=== PATIENT | female | born 1955 | race Caucasian/White ===

== ENCOUNTER 2024-01-16 10:26 | Inpatient (IN) | payer OTHER, MEDICAID, SELFPAY ==
[2024-01-16] VITALS (12 sets, daily range): BP systolic 109–128; BP diastolic 53–72; PULSE 88–111; RESP 14–22; TEMP 35.8–37.6; O2SAT 90–99; BMI 28.8
--- NOTE | 2024-01-16 10:38 | ED.GENADULT ---
HPI - General Adult General Chief complaint: Shortness of Breath/Dyspnea Stated complaint: SOB Time Seen by Provider: 01/16/24 10:37 History of Present Illness HPI narrative: 68-year-old female presents with shortness of breath. She has history of COPD but could not tell me additional medical history. She is on methadone. She has been trying nebulizers overnight. She uses home O2 at night but not usually during day. She notes several days of progressive shortness of breath with productive cough, no clear hemoptysis, with pleuritic right-sided chest pain. She has had fever subjectively. She is currently on 2 L nasal cannula for low oxygen. No back or abdominal or flank pain. No leg swelling or leg pain. No trauma. No lightheadedness or syncope. She is unable provide additional history at this time. Related Data Allergies Allergy/AdvReac Type Severity Reaction Status Date / Time morphine Allergy Verified 01/16/24 10:38 Review of Systems Review of Systems Narrative: Constitutional: + fever, no chills Eyes: no visual disturbance, no discharge Ears, Nose, Mouth, Throat: no rhinorrhea, no sore throat Cardiovascular: + chest pain, no palpitations Respiratory: + cough, shortness of breath Gastrointestinal: no abdominal pain, no vomiting, no diarrhea Genitourinary: no dysuria, no hematuria Musculoskeletal: no back pain, no neck stiffness Skin: no rash, no wound Neurological: no focal weakness, no focal numbness Patient History Social History household members: significant other Smoking Status: Current every day smoker Exam Narrative Exam Narrative: Const: no acute distress, + toxic appearing; anxious, remains conversant; occasional cough; on 2L NC Eyes: PERRLA, EOMI ENT: mucous membranes moist Neck: supple, non-tender Resp: appears mildly tachypneic, with moderate aeration with mild expiratory wheezes bilaterally Card: regular rate and rhythm, no murmurs Abd: non tender diffusely, no rigidity or rebound or guarding Back: no T or L spine tenderness, no CVA tenderness bilaterally Extrem: no deformities, no swelling bilateral lower extremities, 2+ distal pulses all extremities Neuro: ANOx4, top knitter grossly intact, grossly intact sensation and strength all extremities Skin: no rash, warm and dry Initial Vital Signs Initial Vital Signs: Vital Signs Temperature 99.6 F 01/16/24 10:29 Pulse Rate 111 H 01/16/24 10:29 Respiratory Rate 22 01/16/24 10:29 Blood Pressure 125/60 01/16/24 10:29 Pulse Oximetry 91 01/16/24 10:29 Oxygen Delivery Method Nasal Cannula 01/16/24 10:29 Oxygen Flow Rate 2 01/16/24 10:29 Course Course Course Narrative: This patient presents with history and exam most suggestive of COPD exacerbation, viral syndrome, pneumonia, though I have considered a broad differential including but not limited to pulmonary embolism, myocarditis, ACS, pneumothorax, CHF exacerbation, symptomatic anemia, metabolic acidosis with respiratory alkalosis, among others. I think it is reasonable to obtain initial infectious workup with blood cultures, labs, chest x-ray, along with EKG, troponin, while giving DuoNebs, steroids, antibiotics and closely reassessing. If there is not clear evidence of pneumonia, I will pursue additional workup for pulmonary embolism, however currently this presentation seems most consistent with infection. Patient is stable on 2 L nasal cannula currently. EKG sinus tachycardia without acute ischemia or immediately concerning interval prolongation on my review. Lactate reassuring. INR mildly elevated. CBC with leukocytosis in setting of suspected infection, no anemia or thrombocytopenia. CMP with mild hyponatremia, creatinine and LFTs within normal limits. Troponin reassuring. BNP mildly elevated. Viral swab negative. CXR: Awaiting formal read but very clear right-sided pneumonia present. Patient is stable on oxygen currently. I am calling the hospitalist to discuss admission. I spoke with Dr. Feldman of hospitalist service who kindly accepts patient. Adding UDS per discussion. Patient currently stable. Radiology review of CXR below, which I agree with on my independent review: FINDINGS: Surgical changes and devices: None. Lungs and pleura: Prominent patchy and confluent opacities within the right hemithorax. Mediastinum: Mediastinal contours appear normal. Heart size is normal. Bones and chest wall: No suspicious bony lesions. Overlying soft tissues appear unremarkable. IMPRESSION: Right hemithorax opacities suggestive of pneumonia. Recommend interval follow-up to document resolution. Dictated by: Liana Ribeiro M.D. on 01/16/2024 at 12:02 Orders Ordered: ED Orders 01/16/24 10:38 Consult to [employer]EROSPACE QUALITY ENGINEER - Fractionation Supervisor Stat 01/16/24 10:39 XR chest 1V Stat EKG-12 Lead Stat Measure peak expiratory flow ONCE RT Consult Eval and Treat NOW 01/16/24 10:50 Complete Blood Count AUTO DIFF Stat Comprehensive Metabolic Panel Stat Covid-19 + FLU A/B + RSV - PCR Stat Lactate (Lactic Acid) Stat NT-proBNP (BNP-Adult 18+) Stat Prothrombin Time INR Stat Troponin I Stat 01/16/24 11:26 Blood Culture Stat 01/16/24 11:54 Urine Drug Screen, Rapid Stat Acetaminophen (Acetaminophen 325 Mg Tablet) 650 mg PO Q6H PRN PRN Reason: Fever/Mild Pain (1-3) Albuterol/Ipratropium (Albuterol/Ipratropium 3 Ml Ampul) 3 ml INH Q1H PRN PRN Reason: Shortness Of Breath Enoxaparin Sodium (Enoxaparin 40 Mg/0.4 Ml Syringe) 40 mg SUBCUT DAILY [facility] Last Admin: 01/16/24 13:53 Dose: 40 mg Documented By: JARRETT Ceftriaxone Sodium 1,000 mg/ (Sodium Chloride) 100 mls @ 200 mls/hr IV Q24H MAGED Stop: 01/20/24 09:01 Doxycycline Hyclate 100 mg/ (Sodium Chloride) 100 mls @ 100 mls/hr IV Q12H [facility] Melatonin (Melatonin 3 Mg Tablet) 6 mg PO BEDTIME PRN PRN Reason: Insomnia Naloxone HCl (Naloxone 0.4 Mg/Ml Vial) 0.2 mg IV Q2MIN PRN PRN Reason: Opiate Reversal Nystatin (Nystatin Powder 15gm) 1 applic TOP BID PRN PRN Reason: Rash Ondansetron HCl (Ondansetron 4 Mg/2 Ml Inj) 4 mg IV Q4HR PRN PRN Reason: Nausea And Vomiting Sodium Chloride (Sodium Chloride 0.9% Flush) 10 ml IV PRN PRN PRN Reason: Flush Sodium Chloride (Sodium Chloride 0.9% Flush) 10 ml IV BID [facility] Discontinued Medications Doxycycline Hyclate (Doxycycline Hyclate 100 Mg Tablet) 100 mg PO NOW ONE Stop: 01/16/24 11:06 Last Admin: 01/16/24 11:29 Dose: 100 mg Documented By: JAKOB Ceftriaxone Sodium 1,000 mg/ (Sodium Chloride) 100 mls @ 200 mls/hr IV NOW ONE Stop: 01/16/24 11:06 Last Infusion: 01/16/24 12:18 Dose: Infused Documented By: Admin: 01/16/24 11:29 Dose: 200 mls/hr Documented By: JAKOB Methylprednisolone (Methylprednisolone 125 Mg/2 Ml Vial) 125 mg IV NOW ONE Stop: 01/16/24 11:06 Last Admin: 01/16/24 11:29 Dose: 125 mg Documented By: JAKOB Vital Signs Vital signs: Vital Signs - 8 hr 01/16/24 10:29 01/16/24 10:30 01/16/24 10:30 Temperature 99.6 F Pulse Rate 111 H 111 H Respiratory Rate 22 Blood Pressure 125/60 125/60 Pulse Oximetry 91 91 Oxygen Delivery Method Nasal Cannula Oxygen Flow Rate 2 01/16/24 10:53 01/16/24 10:53 01/16/24 11:00 Temperature Pulse Rate 109 H 107 H Respiratory Rate 16 17 Blood Pressure 128/62 Pulse Oximetry 91 92 Oxygen Delivery Method Oxygen Flow Rate 01/16/24 11:00 01/16/24 11:30 01/16/24 11:30 Temperature Pulse Rate 105 H Respiratory Rate 16 Blood Pressure 116/55 L 117/56 L Pulse Oximetry 90 L Oxygen Delivery Method Oxygen Flow Rate 01/16/24 12:00 01/16/24 12:00 Temperature Pulse Rate 102 H Respiratory Rate 14 Blood Pressure 109/53 L Pulse Oximetry 91 Oxygen Delivery Method Nasal Cannula Oxygen Flow Rate 2 Medical Decision Making Lab Data 01/16/24 10:50 01/16/24 10:50 Labs: Lab Results 01/16/24 Range/Units 10:50 WBC 16.8 H (4.5-11.0) X10^3/uL RBC 4.42 (4.0-5.2) X10^6/uL Hgb 12.4 (12.0-16.0) g/dL Hct 36.7 (36-46) % MCV 83.1 (80-100) fL MCH 28.2 (26-34) PG MCHC 33.9 (30-36) % RDW 14.1 (11.6-14.8) % Plt Count 190 (150-400) X10^3/uL Neut % (Auto) Not Reportable Lymph % (Auto) Not Reportable [place] % (Auto) Not Reportable Eos % (Auto) Not Reportable Baso % (Auto) Not Reportable Lymph # (Auto) Not Reportable [place] # (Auto) Not Reportable Baso # (Auto) Not Reportable Total Counted 100 Seg Neutrophils % 53.0 (38-70) % Band Neutrophils % 35.0 H (3-7) % Lymphocytes % (Manual) 4.0 L (25-45) % Atypical Lymphs % 2.0 H ( - 0) % Monocytes % (Manual) 5.0 (2-11) % Metamyelocytes % 1.0 H (-0) % Neutrophils # (Manual) 77000 H (2015-8418) /uL Toxic Vacuolation Present H RBC Morphology Normal morphology PT 15.7 H (9.4-12.5) SECONDS INR 1.4 H (0.9-1.3) Sodium 133 L (137-145) mmol/L Potassium 3.6 (3.4-5.1) mmol/L Chloride 100 (98-107) mmol/L Carbon Dioxide 28 (22-32) mmol/L BUN 21 H (7-17) mg/dL Creatinine 0.80 (0.52-1.04) mg/dL Estimated GFR > 60 (>60) mL/min BUN/Creatinine Ratio 26.3 H (6-22) Glucose 127 H (80-110) mg/dL Lactate 1.7 (0.7-2.1) mmol/L Calcium 8.5 (8.4-10.2) mg/dL Total Bilirubin 0.9 (0.2-1.3) mg/dL AST 30 (14-36) IU/L ALT 20 (<35) IU/L Alkaline Phosphatase 83 (38-126) U/L Troponin I < 0.012 (0.01-0.034) ng/mL NT-Pro-B Natriuret Pep 510 H (<125) pg/mL Total Protein 7.1 (6.3-8.2) g/dL Albumin 3.5 (3.5-5.0) g/dL Globulin 3.6 (1.7-4.1) g/dL Albumin/Globulin Ratio 1.0 (1.0-2.8) SARS-CoV-2 (PCR) Negative (Negative) Influenza A (RT-PCR) Flu a negative (NEGATIVE) Influenza B (RT-PCR) Flu b negative (NEGATIVE) RSV (PCR) Negative (Negative) Discharge Plan Departure Patient Disposition: Admitted As Inpatient Clinical Impression: Community acquired pneumonia Admit Date/Time: 01/16/24 12:06 Admit Provider: Cole Feldman
--- NOTE | 2024-01-16 10:39 | DI.RAD.S_ITS ---
PROCEDURE: XR CHEST 1V INDICATIONS: Shortness of breath TECHNIQUE: One view of the chest was acquired. COMPARISON: CR, CHEST 1VW (PORTABLE), 04/03/2014, 6:11. FINDINGS: Surgical changes and devices: None. Lungs and pleura: Prominent patchy and confluent opacities within the right hemithorax. Mediastinum: Mediastinal contours appear normal. Heart size is normal. Bones and chest wall: No suspicious bony lesions. Overlying soft tissues appear unremarkable. IMPRESSION: Right hemithorax opacities suggestive of pneumonia. Recommend interval follow-up to document resolution. Dictated by: Liana Ribeiro M.D. on 01/16/2024 at 12:02 Approved by: Liana Ribeiro M.D. on 01/16/2024 at 12:02
[2024-01-16 11:10] LABS: Hematocrit 36.7 % (36-46); Hemoglobin 12.4 g/dL (12.0-16.0); Mean Corpuscular HGB Conc 33.9 % (30-36); Mean Corpuscular Hemoglobin 28.2 PG (26-34); Mean Corpuscular Volume 83.1 fL (80-100); Platelet Count 190 X10^3/uL (150-400); Red Blood Cell Count 4.42 X10^6/uL (4.0-5.2); Red Cell Distribution Width 14.1 % (11.6-14.8); White Blood Cell Count 16.8 X10^3/uL (4.5-11.0)
[2024-01-16 11:15] LABS: INR 1.4 (0.9-1.3); Prothrombin Time 15.7 SECONDS (9.4-12.5)
[2024-01-16 11:16] LABS: Add Manual Diff / Slide Review YES
[2024-01-16 11:19] LABS: Alanine Aminotransferase 20 IU/L (<35); Albumin 3.5 g/dL (3.5-5.0); Alkaline Phosphatase 83 U/L (38-126); Aspartate Aminotransferase 30 IU/L (14-36); BUN Creatinine Ratio 26.3 (6-22); Bilirubin Total 0.9 mg/dL (0.2-1.3); Blood Urea Nitrogen 21 mg/dL (7-17); Calcium 8.5 mg/dL (8.4-10.2); Carbon Dioxide 28 mmol/L (22-32); Chloride 100 mmol/L (98-107); Estimated Glomerular Filt Rate > 60 mL/min (>60); Globulin 3.6 g/dL (1.7-4.1); Glucose 127 mg/dL (80-110); HEMOLYSIS < 15 (0-50); Lactate (Lactic Acid) 1.7 mmol/L (0.7-2.1); Potassium 3.6 mmol/L (3.4-5.1); Sodium 133 mmol/L (137-145); Total Protein 7.1 g/dL (6.3-8.2)
[2024-01-16] MEDS: DOXYCYCLINE HYCLATE 100 MG TABLET PO (11:29)
[2024-01-16] MEDS: methylPREDNISolone 125 MG/2 ML VIAL IV (11:29)
[2024-01-16] MEDS: cefTRIAXone 1,000 MG in SODIUM CHLORIDE 0.9% 100 ML 200 MG IV (11:29)
[2024-01-16 11:30] LABS: NT-proBNP (BNP-Adult 18+) 510 pg/mL (<125); Troponin I < 0.012 ng/mL (0.01-0.034)
[2024-01-16 11:33] LABS: Neutrophils Absolute Manual 14784 /uL (3000-5900); Total Cells Counted 100
[2024-01-16 11:34] LABS: RBC Morphology Normal Morphology; Toxic Vacuolation Present
[2024-01-16 11:45] LABS: Influenza A - CEPHEID Flu A NEGATIVE (NEGATIVE); Influenza B - CEPHEID Flu B NEGATIVE (NEGATIVE); Respiratory Syncytial Virus Negative (Negative)
[2024-01-16 11:46] LABS: COVID-19 CEPHEID 4-PLEX PCR Negative (Negative)
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
[2024-01-16] MEDS: ENOXAPARIN 40 MG/0.4 ML SYRINGE SUBCUT (13:53)
--- NOTE | 2024-01-16 15:59 | PM.HP.1 ---
History of Present Illness History of Present Illness Date Patient Seen: 01/16/24 Chief complaint: SOB Narrative: Angela Santos is a 68yo F with PMH of opioid abuse now on methadone, daily tobacco use, depression, hypothyroidism and GERD who presents with R-sided pleuritic CP and dyspnea. Patient states for about the past week she has noticed R-sided pain with deep breaths. This progressed to the point where she was becoming SOB with a productive cough so was sent to the ED by [facility] where she goes to get her daily methadone. She is weaning herself off fentanyl pills and says the methadone has helped alot, and she is down to 1-2 pills per day from 9-10. She also smokes cigarettes daily. In the ED found to be hypoxic in the 80's so put on 3L NC. She normally does not use O2. She denies substernal CP, NV, abd pain, diarrhea or LE swelling. PFSH Social History household members: significant other Smoking Status: Current every day smoker Meds Home Medications and Allergies Home Medications Medication Instructions Recorded Confirmed Type bupropion HCl 150 mg 24 hr tablet, 150 mg PO QAM 01/16/24 01/16/24 History extended release levothyroxine 112 mcg tablet 112 mcg PO DAILY 01/16/24 01/16/24 History omeprazole 40 mg capsule,delayed 40 mg PO DAILY 01/16/24 01/16/24 History release Allergies Allergy/AdvReac Type Severity Reaction Status Date / Time morphine Allergy Verified 01/16/24 10:38 Review of Systems Review of Systems Narrative: All other systems reviewed with the patient and are negative unless otherwise stated. Exam Vital Signs (past 8 hours): - 01/16/24 10:29 01/16/24 10:30 01/16/24 10:30 Temperature 99.6 F Pulse Rate 111 H 111 H Respiratory Rate 22 Blood Pressure 125/60 125/60 Pulse Oximetry 91 91 Oxygen Delivery Method Nasal Cannula Oxygen Flow Rate 2 01/16/24 10:53 01/16/24 10:53 01/16/24 11:00 Temperature Pulse Rate 109 H 107 H Respiratory Rate 16 17 Blood Pressure 128/62 Pulse Oximetry 91 92 Oxygen Delivery Method Oxygen Flow Rate 01/16/24 11:00 01/16/24 11:30 01/16/24 11:30 Temperature Pulse Rate 105 H Respiratory Rate 16 Blood Pressure 116/55 L 117/56 L Pulse Oximetry 90 L Oxygen Delivery Method Oxygen Flow Rate 01/16/24 12:00 01/16/24 12:00 01/16/24 12:30 Temperature 98.2 F Pulse Rate 102 H 98 H Respiratory Rate 14 20 Blood Pressure 109/53 L 123/72 Pulse Oximetry 91 90 L Oxygen Delivery Method Nasal Cannula Oxygen Flow Rate 2 3 01/16/24 12:30 01/16/24 12:30 01/16/24 12:48 Temperature 98.2 F Pulse Rate 98 H Respiratory Rate 20 20 Blood Pressure 123/72 123/72 Pulse Oximetry 90 L Oxygen Delivery Method Oxygen Flow Rate 3 01/16/24 15:51 Temperature 96.5 F L Pulse Rate 90 Respiratory Rate 20 Blood Pressure 119/62 Pulse Oximetry 99 Oxygen Delivery Method Oxygen Flow Rate 3 Oxygen Delivery Method Nasal Cannula Oxygen Flow Rate 3 Narrative Exam Narrative: GEN: no acute distress, appears older than stated age HEENT: moist mucous membranes, PERRL NECK: trachea midline, no JVD CV: regular rate and rhythm, no murmurs PULM: clear bilaterally ABD: soft, nontender, nondistended, no organomegaly EXT: warm and well perfused with no edema NEURO: awake, alert, oriented, no focal deficits Objective Labs 01/16/24 10:50 01/16/24 10:50 Labs: Laboratory Results - last 24 hr 01/16/24 10:50 WBC 16.8 H RBC 4.42 Hgb 12.4 Hct 36.7 MCV 83.1 MCH 28.2 MCHC 33.9 RDW 14.1 Plt Count 190 Neut % (Auto) Not Reportable Lymph % (Auto) Not Reportable [place] % (Auto) Not Reportable Eos % (Auto) Not Reportable Baso % (Auto) Not Reportable Lymph # (Auto) Not Reportable [place] # (Auto) Not Reportable Baso # (Auto) Not Reportable Total Counted 100 Seg Neutrophils % 53.0 Band Neutrophils % 35.0 H Lymphocytes % (Manual) 4.0 L Atypical Lymphs % 2.0 H Monocytes % (Manual) 5.0 Metamyelocytes % 1.0 H Neutrophils # (Manual) 74371 H Toxic Vacuolation Present H RBC Morphology Normal morphology PT 15.7 H INR 1.4 H Sodium 133 L Potassium 3.6 Chloride 100 Carbon Dioxide 28 BUN 21 H Creatinine 0.80 Estimated GFR > 60 BUN/Creatinine Ratio 26.3 H Glucose 127 H Lactate 1.7 Calcium 8.5 Total Bilirubin 0.9 AST 30 ALT 20 Alkaline Phosphatase 83 Troponin I < 0.012 NT-Pro-B Natriuret Pep 510 H Total Protein 7.1 Albumin 3.5 Globulin 3.6 Albumin/Globulin Ratio 1.0 SARS-CoV-2 (PCR) Negative Influenza A (RT-PCR) Flu a negative Influenza B (RT-PCR) Flu b negative RSV (PCR) Negative Assessment & Plan Assessment & Plan narrative: # acute hypoxic resp failure 2/2 CAP -R sided infiltrate on CXR, WBC 16, SOB with productive cough -rocephin and doxy -may have been from smoking fentanyl pills as patient admits to smoking 1-2 per day -currently on 3L NC, wean as able -sputum culture if able # opioid abuse while on methadone -patient weaning herself down from daily fentanyl pill smoking, was 10/day now 1-2 -continue methadone 75mg daily, will confirm dosage with [facility] # hypothyroidism -continue synthroid # depression -continue wellbutrin # GERD -continue PPI Code status is full code. DVT prophylaxis with Lovenox. Proxy is daughter Renee. I have reviewed home meds and used all available resources to reconcile the home meds. Case discussed with ED physician/APC and patient will be admitted to the hospitalist service for further workup and management. This patient will be admitted as inpatient and will require greater than 2 midnights of hospital time to treat pneumonia. Quality VTE Deep Vein Thrombosis/Pulmonary Embolism Present on Admission: No
[2024-01-16] MEDS: ALBUTEROL/IPRATROPIUM 3 ML AMPUL INH ×2 (18:03→20:16)
[2024-01-16] MEDS: NYSTATIN POWDER 15GM 1 APPLIC TOP (18:27)
[2024-01-16] MEDS: CALCIUM CARBONATE 500 MG TAB 1000 MG PO (18:27)
[2024-01-16 18:39] LABS: Appearance Urine UA CLEAR; Bilirubin Urine UA NEGATIVE (NEGATIVE); Color Urine UA YELLOW; Glucose Urine UA NEGATIVE (Negative); Ketones Urine UA NEGATIVE (NEGATIVE); Leukocyte Esterase Urine UA NEGATIVE (NEGATIVE); Nitrite Urine UA NEGATIVE (Negative); Occult Blood Urine UA NEGATIVE (Negative); Protein Urine UA TRACE (Negative); Specific Gravity Urine UA >=1.030 (1.000-1.035)
[2024-01-16 18:44] LABS: Ur Creatinine Normal (Normal); Ur Specific Gravity Normal (Normal); Urine Tetrahydrocannabinol Negative (Negative); Urine pH Normal (Normal)
[2024-01-16 18:45] LABS: UR Morphine/Opiate cutoff 300 Positive (Negative); Urine Amphetamines Positive (Negative); Urine Barbiturates Negative (Negative); Urine Benzodiazepines Negative (Negative); Urine MDMA Negative (Negative); Urine Methadone Positive (Negative); Urine Methamphetamines Positive (Negative); Urine Oxycodone Positive (Negative); Urine Phencyclidine Negative (Negative); Urine Tricyclic Antidepressant Negative (Negative)
[2024-01-16 18:46] LABS: Urine Cocaine Positive (Negative)
[2024-01-16 18:50] LABS: Bacteria Urine Moderate (10-30); RBC Urine None Seen (0-5/HPF); Squamous Epithelial Cell Urine 10-30 /HPF (0-5/HPF); Urine Volume 10mL (spun)
[2024-01-16 18:51] LABS: Amorphous Sediment Urine 1+; Culture Indicated Urine Specimen Cultured; Hyaline Casts Urine 1-5/LPF; Mucus Urine 1+ (Negative); Transitional Epi Cells Urine 1-5/HPF (0-5/HPF); WBC Urine 5-10/HPF (0-5/HPF)
[2024-01-16] MEDS: BUDESONIDE 0.5 MG/2 ML NEB INH (20:17)
[2024-01-16] MEDS: SODIUM CHLORIDE 0.9% FLUSH 10 ML IV (21:00)
[2024-01-16] MEDS: LORazepam 0.5 MG TABLET PO (22:59)
[2024-01-16] MEDS: DOXYCYCLINE 100 MG in SODIUM CHLORIDE 0.9% 100 ML IV (23:11)
--- NOTE | 2024-01-16 23:30 | PC.NURSE ---
maintenance supervisor 2nd shift: Patient is AxOx4, vital signs are stable, 97% on 3L NC. Patient states that her breathing has improved, mild SOB noted on exertion, received breathing treatment before bed. Coughing up phlegm, sputum sample sent to lab. Deep breathing exercises performed. Denies pain, however patient states that she is starting to go through withdrawals and is feeling anxious/tearful. Patient states that she takes methadone & fentanyl daily. Stated that she is considering going home. Emotional support and education provided on treatment interventions. Notified MD Gill, 0.5 PO Ativan ordered & given. Patient states she is feeling better and more relaxed now. Plan of care ongoing.
[2024-01-17] VITALS (7 sets, daily range): BP systolic 97–113; BP diastolic 61–68; PULSE 84–87; RESP 16–20; TEMP 36–36.6; O2SAT 86–99
[2024-01-17 05:47] LABS: BUN Creatinine Ratio 35.9 (6-22); Blood Urea Nitrogen 23 mg/dL (7-17); Carbon Dioxide 33 mmol/L (22-32); Chloride 102 mmol/L (98-107); Estimated Glomerular Filt Rate > 60 mL/min (>60); Glucose 172 mg/dL (80-110); HEMOLYSIS < 15 (0-50); Sodium 135 mmol/L (137-145)
[2024-01-17 05:51] LABS: Add Manual Diff / Slide Review NO; Basophils Absolute Auto 0 /uL (0-100); Basophils Percent Auto 0.2 % (0-2); Eosinophils Absolute Auto 0 /uL (0-450); Hemoglobin 11.5 g/dL (12.0-16.0); Lymphocytes Absolute Auto 500 /uL (1100-4500); Lymphocytes Percent Auto 4.1 % (25-40); Mean Corpuscular HGB Conc 33.7 % (30-36); Mean Corpuscular Hemoglobin 28.2 PG (26-34); Mean Corpuscular Volume 83.8 fL (80-100); Monocytes Absolute Auto 600 /uL (0-900); Monocytes Percent Auto 4.3 % (3-14); Neutrophils Absolute Auto 11900 /uL (1500-7000); Neutrophils Percent Auto 91.4 % (50-75); Platelet Count 182 X10^3/uL (150-400); Red Blood Cell Count 4.06 X10^6/uL (4.0-5.2); Red Cell Distribution Width 13.9 % (11.6-14.8)
[2024-01-17] MEDS: PANTOPRAZOLE DR 40 MG TABLET PO (05:59)
[2024-01-17] MEDS: LEVOTHYROXINE 112 MCG TABLET PO (05:59)
[2024-01-17 07:51] LABS: MRSA (Nasal) PCR DETECTED (Not Detect)
[2024-01-17] MEDS: BUDESONIDE 0.5 MG/2 ML NEB INH (08:42)
[2024-01-17] MEDS: ALBUTEROL/IPRATROPIUM 3 ML AMPUL INH ×2 (08:42→11:20)
[2024-01-17] MEDS: METHADONE 10 MG TABLET 75 MG PO (09:06)
[2024-01-17] MEDS: SODIUM CHLORIDE 0.9% FLUSH 10 ML IV (09:07)
[2024-01-17] MEDS: cefTRIAXone 1,000 MG in SODIUM CHLORIDE 0.9% 100 ML 200 MG IV (09:07)
[2024-01-17] MEDS: ENOXAPARIN 40 MG/0.4 ML SYRINGE SUBCUT (09:07)
[2024-01-17] MEDS: buPROPion XL 150 MG TAB PO (09:07)
[2024-01-17] MEDS: NICOTINE 21 MG PATCH TOP (09:07)
[2024-01-17] MEDS: VANCOMYCIN 1,250 MG/250 ML PIGGYBACK 250 MG IV ×2 (09:08→09:52)
--- NOTE | 2024-01-17 10:54 | PC.NURSE ---
Assess- Patient is pleasant this morning, she has iv vanco infusing and tolerated her other iv antibiotic this morning. Patient given her 75mg of po methadone. She is visiting with her s.o. at bedside. Nicotine patch applied to l.shoulder. She states that she lives [place] in [place] in an apartment and that she does use fentanyl (blues) pills. Patient is comfortable and sitting at the side of her bed.
--- NOTE | 2024-01-17 11:16 | CM.DPC ---
DCP Cont. Reviewed EMR and team rounds for status updates. Pt is much improved today. Plan is to have RT complete a home O2 eval, then she will d/c home. Her significant other will plan to transport her. This LAPPER provided pt with OP [facility] tx facilities, discussed a plan for her to decide along with her PCP which once would best meet her needs. No further DCP needs identified at this time.
[2024-01-17] MEDS: VANCOMYCIN PER PHARMACY 1 REQUEST MISC (11:27)
[2024-01-17] MEDS: DOXYCYCLINE 100 MG in SODIUM CHLORIDE 0.9% 100 ML IV (11:27)
--- NOTE | 2024-01-17 15:40 | P.DS_ITS ---
History of Present Illness History of Present Illness Chief complaint: SOB Narrative: Angela Santos is a 68yo F with PMH of opioid abuse now on methadone, daily tobacco use, depression, hypothyroidism and GERD who presents with R-sided pleuritic CP and dyspnea. Patient states for about the past week she has noticed R-sided pain with deep breaths. This progressed to the point where she was becoming SOB with a productive cough so was sent to the ED by [facility] where she goes to get her daily methadone. She is weaning herself off fentanyl pills and says the methadone has helped alot, and she is down to 1-2 pills per day from 9-10. She also smokes cigarettes daily. In the ED found to be hypoxic in the 's so put on 3L NC. She normally does not use O2. She denies substernal CP, NV, abd pain, diarrhea or LE swelling. Discharge Providers Provider Date of admission: 01/16/24 12:06 Discharge Date: 01/17/24 Primary care physician: Zoie Clemons DO Consults: 01/16/24 10:38 Consult to [facility] [place] - Waiter Waitress Stat Comment: drug use, wants to talk about detox 01/16/24 14:48 Consult to [facility] [place] - Waiter Waitress Routine Comment: Consult to Pastoral Services Routine Comment: patient request Discharge provider: Cole Feldman DO Summary Hospital Course Discharge Diagnosis: # acute on chronic hypoxic resp failure 2/2 CAP -R sided infiltrate on CXR, WBC 16, SOB with productive cough -rocephin and doxy -may have been from smoking fentanyl pills as patient admits to smoking 1-2 per day -currently on 3L NC, normally uses 2L at night at home -RT qualified patient for home O2 and sent home with O2 supplies -discharged on 5 more days of po augmentin and doxy # polysubstance abuse while on methadone -patient weaning herself down from daily fentanyl pill smoking, was 10/day now 1-2 -continue methadone 75mg daily, [facility] -Utox positive for oxy, methadone, cocaine and methamphetamine # hypothyroidism -continue synthroid # depression -continue wellbutrin # GERD -continue PPI Hospital Course: Admitted for PNA and hypoxia. Placed on IV abx and supp O2. She normally uses 2L NC at home at night, but has been trying to get home O2 during the day as well. She improved and was discharged with home O2 supplies and po abx for 5 more days. Exam Vital Signs (past 8 hours): - 01/17/24 08:00 01/17/24 08:42 01/17/24 11:23 Temperature 97.5 F L Pulse Rate 87 86 85 Respiratory Rate 18 16 16 Blood Pressure 97/61 Pulse Oximetry 93 99 92 Oxygen Delivery Method Nasal Cannula Nasal Cannula Oxygen Flow Rate 2 2 2 01/17/24 11:45 01/17/24 12:00 Temperature 97.8 F Pulse Rate 84 Respiratory Rate 18 Blood Pressure 110/67 Pulse Oximetry 86 L 91 Oxygen Delivery Method Oxygen Flow Rate 0 1 Oxygen Delivery Method Nasal Cannula Oxygen Flow Rate 1 Narrative Exam Narrative: GEN: no acute distress, appears older than stated age HEENT: moist mucous membranes, PERRL NECK: trachea midline, no JVD CV: regular rate and rhythm, no murmurs PULM: clear bilaterally ABD: soft, nontender, nondistended, no organomegaly EXT: warm and well perfused with no edema NEURO: awake, alert, oriented, no focal deficits Objective Labs 01/17/24 05:20 01/17/24 05:20 Labs: Laboratory Results - last 24 hr 01/16/24 01/16/24 01/17/24 18:10 18:10 05:20 WBC 13.0 H RBC 4.06 Hgb 11.5 L Hct 34.0 L MCV 83.8 MCH 28.2 MCHC 33.7 RDW 13.9 Plt Count 182 Neut % (Auto) 91.4 H Lymph % (Auto) 4.1 L [place] % (Auto) 4.3 Eos % (Auto) 0.0 L Baso % (Auto) 0.2 Neut # (Auto) 79429 H Lymph # (Auto) 500 L [place] # (Auto) 600 Eos # (Auto) 0 Baso # (Auto) 0 Sodium 135 L Potassium 4.0 Chloride 102 Carbon Dioxide 33 H BUN 23 H Creatinine 0.64 Estimated GFR > 60 BUN/Creatinine Ratio 35.9 H Glucose 172 H Calcium 9.0 Urine Color Yellow Urine Appearance Clear Urine pH 6.0 Normal Ur Specific [place] >=1.030 H Urine Protein Trace H Urine Glucose (UA) Negative Urine Ketones Negative Urine Occult Blood Negative Urine Nitrate Negative Urine Bilirubin Negative Urine Urobilinogen 1.0 Ur Leukocyte Esterase Negative Urine RBC None seen Urine WBC 5-10/hpf H Ur Squamous Epith Cells 10-30 /hpf H Ur Transition Epith Cell 1-5/hpf Amorphous Sediment 1+ Urine Bacteria Moderate (10-30) H Hyaline Casts 1-5/lpf Urine Mucus 1+ H Ur Culture Indicated? Specimen cultured Vol Urine Centrifuged 10ml (spun) Nasal Screen MRSA (PCR) U Opiates 300ng/mL cut Positive H Ur Oxycodone Screen Positive H Urine Methadone Screen Positive H Ur Barbiturates Screen Negative U Tricyclic Antidepress Negative Ur Phencyclidine Scrn Negative Ur Amphetamines Screen Positive H U Methamphetamines Scrn Positive H Ur MDMA Scrn (Ecstasy) Negative U Benzodiazepines Scrn Negative Urine Cocaine Screen Positive H U Marijuana (THC) Screen Negative Urine Specific [place] Normal Ur Creatinine Normal 01/17/24 06:15 WBC RBC Hgb Hct MCV MCH MCHC RDW Plt Count Neut % (Auto) Lymph % (Auto) [place] % (Auto) Eos % (Auto) Baso % (Auto) Neut # (Auto) Lymph # (Auto) [place] # (Auto) Eos # (Auto) Baso # (Auto) Sodium Potassium Chloride Carbon Dioxide BUN Creatinine Estimated GFR BUN/Creatinine Ratio Glucose Calcium Urine Color Urine Appearance Urine pH Ur Specific [place] Urine Protein Urine Glucose (UA) Urine Ketones Urine Occult Blood Urine Nitrate Urine Bilirubin Urine Urobilinogen Ur Leukocyte Esterase Urine RBC Urine WBC Ur Squamous Epith Cells Ur Transition Epith Cell Amorphous Sediment Urine Bacteria Hyaline Casts Urine Mucus Ur Culture Indicated? Vol Urine Centrifuged Nasal Screen MRSA (PCR) Detected H U Opiates 300ng/mL cut Ur Oxycodone Screen Urine Methadone Screen Ur Barbiturates Screen U Tricyclic Antidepress Ur Phencyclidine Scrn Ur Amphetamines Screen U Methamphetamines Scrn Ur MDMA Scrn (Ecstasy) U Benzodiazepines Scrn Urine Cocaine Screen U Marijuana (THC) Screen Urine Specific [place] Ur Creatinine PFSH Social History household members: significant other Smoking Status: Current every day smoker Discharge Plan Discharge Plan Patient Disposition: Home Provider Discharge Comment: I've put you on 2 antibiotics to finish treating your pneumonia. Discharge orders & Medications Prescriptions: New amoxicillin-pot clavulanate 875-125 mg tablet 1 tab PO BID 5 Days Qty: 10 0RF doxycycline hyclate 100 mg tablet 100 mg PO BID 5 Days Qty: 10 0RF nystatin 100,000 unit/gram powder 1 applic topical DAILY PRN (Reason: rash) Qty: 30 0RF Continued bupropion HCl 150 mg tablet extended release 24 hr 150 mg PO QAM levothyroxine 112 mcg tablet 112 mcg PO DAILY omeprazole 40 mg capsule,delayed release(DR/EC) 40 mg PO DAILY albuterol sulfate 90 mcg/actuation HFA aerosol inhaler 2 puff inhalation TID-QID PRN (Reason: SOB) fluticasone propion-salmeterol 230-21 mcg/actuation HFA aerosol inhaler 2 puff inhalation BID Spiriva Respimat 2.5 mcg/actuation mist 1 puff inhalation DAILY Follow up/Referrals: Zoie Clemons DO [Primary Care Provider] - 2 Weeks Visit Report/Discharge Packet Stand Alone Forms: Patient Portal/API, Stroke Signs & Symptoms Discharge Data Primary Care Provider: Zoie Clemons Quality VTE Deep Vein Thrombosis/Pulmonary Embolism Present on Admission: No
== END 2024-01-17 16:10 | disposition home or self-care (01) | DRG 193 ==
LOC: ED 12:02 → AC 12:07
PROVIDERS: Admitting Provider Student in an Organized Health Care Education/Training Program; Emergency Provider Emergency Medicine; PCP Student in an Organized Health Care Education/Training Program; Referring Provider Emergency Medicine; Visit Provider Student in an Organized Health Care Education/Training Program
DX: J18.9 Pneumonia, unspecified organism (principal); J96.01 Acute respiratory failure with hypoxia; E03.9 Hypothyroidism, unspecified; F32.A Depression, unspecified; K21.9 Gastro-esophageal reflux disease without esophagitis; F19.10 Other psychoactive substance abuse, uncomplicated; Z72.0 Tobacco use
CPT/HCPCS: 0241U; 36415; 71045; 80048; 80053; 80305; 81001; 83605; 83880; 84484; 85007; 85025; 85610; 87040; 87070; 87086; 87205; 87797; 93005; 93010; 94640; 96365; 96375; 99284; 99285; J0696; J1650; J2919

== ENCOUNTER 2024-01-20 10:25 | Inpatient (IN) | payer OTHER, MEDICAID, SELFPAY ==
[2024-01-16 14:28] VITALS: BMI 28.8
[2024-01-20] VITALS (17 sets, daily range): BP systolic 117–154; BP diastolic 57–82; PULSE 82–94; RESP 18–22; TEMP 36.7–37.2; O2SAT 87–95; BMI 26.6
--- NOTE | 2024-01-20 10:41 | ED_ITS ---
HPI - SOB/Dyspnea General Chief Complaint: Shortness of Breath/Dyspnea Stated Complaint: r. rib pain w/ coughing Time Seen by Provider: 01/20/24 10:35 History of Present Illness HPI Narrative: this is a 68-year-old female seen here on the 15 of January diagnosed with pneumonia and discharged on Augmentin. She was at her methadone clinic today had shortness of breath and right-sided chest pain EMS was called. Had an 88% room air saturation. She was transported. History is obtained from EMS old records in the patient. She is complaining of right-sided chest pain. It hurts when she breathes. He is in his sharp. She also feels short of breath. She has not had fevers, she has had some nausea. Patient states that she is a smoker. He is on methadone 75 mg a day. This dose was confirmed with the [facility] Related Data Home Medications Medication Instructions Recorded Confirmed albuterol sulfate 90 mcg/actuation 2 puff inhalation TID-QID PRN SOB 01/16/24 01/16/24 aerosol inhaler bupropion HCl 150 mg 24 hr tablet, 150 mg PO QAM 01/16/24 01/16/24 extended release fluticasone propionate 230 2 puff inhalation BID 01/16/24 01/16/24 mcg-salmeterol 21 mcg/actuation HFA inhaler levothyroxine 112 mcg tablet 112 mcg PO DAILY 01/16/24 01/16/24 omeprazole 40 mg capsule,delayed 40 mg PO DAILY 01/16/24 01/16/24 release tiotropium bromide 2.5 1 puff inhalation DAILY 01/16/24 01/16/24 mcg/actuation mist for inhalation (Spiriva Respimat) Previous Rx's Medication Instructions Recorded amoxicillin 875 mg-potassium 1 tab PO BID 5 days #10 tabs 01/17/24 clavulanate 125 mg tablet doxycycline hyclate 100 mg tablet 100 mg PO BID 5 days #10 tabs 01/17/24 nystatin 100,000 unit/gram topical 1 applic topical DAILY PRN rash 01/17/24 powder #30 grams Allergies Allergy/AdvReac Type Severity Reaction Status Date / Time morphine Allergy Verified 01/16/24 10:38 Patient History Social History household members: significant other Smoking Status: Current every day smoker Smoking Status: Current every day smoker tobacco type: cigarettes alcohol intake frequency: other Substance Use Type: opiates and prescription drug Exam Initial Vital Signs Initial Vital Signs: Vital Signs Temperature 98.9 F 01/20/24 10:37 Pulse Rate 94 H 01/20/24 10:37 Respiratory Rate 22 01/20/24 10:37 Blood Pressure 143/67 H 01/20/24 10:37 Pulse Oximetry 91 01/20/24 10:37 Oxygen Delivery Method Room Air 01/20/24 10:37 Const General: acute distress HENMT Head: normocephalic and atraumatic Chest Other: tenderness to palpation along the right chest wall. There is no rash. There is no crepi Resp Effort & Inspection: labored and pursed lip breathing Auscultation: rhonchi and wheezes Cardio Other: regular rhythm rate no murmur rub or gallop Skin Other: warm and dry Neuro Other: alert oriented moving all 4 extremities Course Orders Ordered: ED Orders 01/20/24 10:35 EKG-12 Lead Stat 01/20/24 10:54 XR chest 2V Stat 01/20/24 11:40 BNP [NT-proBNP (BNP-Adult 18+)] Stat CBC Auto Diff [Complete Blood Count AUTO DIFF] Stat CMP [Comprehensive Metabolic Panel] Stat D Dimer Stat Troponin I Stat 01/20/24 13:55 CT angio chest PE protocol Stat 01/20/24 15:46 Respiratory Panel (Film Array) Stat 01/20/24 15:49 Blood Culture Stat Procalcitonin Stat Discontinued Medications Methadone HCl (Methadone 10 Mg Tablet) 75 mg PO NOW ONE Stop: 01/20/24 13:01 Last Admin: 01/20/24 13:05 Dose: 75 mg Documented By: KW Consultations Consultation #1: discussed with Dr. Coy, hospitalist who accepts admission Vital Signs Vital signs: Vital Signs - 8 hr 01/20/24 10:37 01/20/24 12:01 01/20/24 12:02 Temperature 98.9 F Pulse Rate 94 H 90 Respiratory Rate 22 Blood Pressure 143/67 H 117/57 L Pulse Oximetry 91 94 Oxygen Delivery Method Room Air 01/20/24 12:02 01/20/24 12:30 01/20/24 12:30 Temperature Pulse Rate 90 86 Respiratory Rate Blood Pressure 133/63 Pulse Oximetry 93 95 Oxygen Delivery Method MDM - SOB/Dyspnea Lab Data Lab results narrative: leukocytosis which is mild at 13.1. Chemistries remarkable for potassium of 3.3. D-dimer is elevated troponin is normal, proBNP is normal 01/20/24 11:40 01/20/24 11:40 Labs: Lab Results 01/20/24 Range/Units 11:40 WBC 13.1 H (4.5-11.0) X10^3/uL RBC 4.32 (4.0-5.2) X10^6/uL Hgb 12.1 (12.0-16.0) g/dL Hct 36.0 (36-46) % MCV 83.4 (80-100) fL MCH 28.0 (26-34) PG MCHC 33.6 (30-36) % RDW 14.3 (11.6-14.8) % Plt Count 276 (150-400) X10^3/uL Neut % (Auto) Not Reportable Lymph % (Auto) Not Reportable [place] % (Auto) Not Reportable Eos % (Auto) Not Reportable Baso % (Auto) Not Reportable Lymph # (Auto) Not Reportable [place] # (Auto) Not Reportable Baso # (Auto) Not Reportable Total Counted 100 Seg Neutrophils % 66.0 (38-70) % Band Neutrophils % 10.0 H (3-7) % Lymphocytes % (Manual) 6.0 L (25-45) % Monocytes % (Manual) 16.0 H (2-11) % Eosinophils % (Manual) 2.0 (2-4) % Neutrophils # (Manual) 9956 H (2715-4594) /uL RBC Morphology Normal morphology D-Dimer 2487 H (<500) ng/ml Sodium 139 (137-145) mmol/L Potassium 3.3 L (3.4-5.1) mmol/L Chloride 101 (98-107) mmol/L Carbon Dioxide 33 H (22-32) mmol/L BUN 9 (7-17) mg/dL Creatinine 0.52 (0.52-1.04) mg/dL Estimated GFR > 60 (>60) mL/min BUN/Creatinine Ratio 17.3 (6-22) Glucose 133 H (80-110) mg/dL Calcium 8.8 (8.4-10.2) mg/dL Total Bilirubin 0.6 (0.2-1.3) mg/dL AST 23 (14-36) IU/L ALT 26 (<35) IU/L Alkaline Phosphatase 96 (38-126) U/L Troponin I < 0.012 (0.01-0.034) ng/mL NT-Pro-B Natriuret Pep 187 H (<125) pg/mL Total Protein 7.3 (6.3-8.2) g/dL Albumin 3.5 (3.5-5.0) g/dL Globulin 3.8 (1.7-4.1) g/dL Albumin/Globulin Ratio 0.9 L (1.0-2.8) Imaging Data CT scan - chest: Radiologist's Impression: [address] [address] [address] Scan Report Signed Patient: Angela Santos MR#: [id number] : 1955 Acct:[id number] Age/Sex: 68 / F Date of Service: 01/20/24 Loc: ED Accession Number: [id number] Procedure: CT angio chest PE protocol Ordering Provider: Bret Murillo MD PROCEDURE: CT ANGIO CHEST PE PROTOCOL INDICATIONS: PE suspected positive dimer TECHNIQUE: After the administration of intravenous contrast, 2 mm thick sections acquired from the pulmonary apices to the posterior costophrenic angles. 3-dimensional maximum intensity projection (MIP) coronal and sagittal reformats were then acquired through the thorax. For radiation dose reduction, the following was used: automated exposure control, adjustment of mA and/or kV according to patient size. COMPARISON: None. FINDINGS: Image quality: Diagnostic. Pulmonary arteries: Pulmonary arteries are normal in size, and demonstrate no intraluminal filling defects to suggest central pulmonary embolism. Lower Neck: No enlarged lymph nodes. Thyroid: No thyroid nodules which require sonographic follow up, per consensus guidelines. Axillae: No enlarged lymph nodes. Chest Wall: Unremarkable. Bones: Unremarkable. Lungs and Pleura: There is a [id number] somewhat lobulated right pleural effusion with a small amount of loculations. There is associated mild compressive atelectasis in the basilar portion of the right lung. There is a interstitial process involving the right upper lobe with extensive interstitial change and septal and paraseptal thickening. Heart: Heart size is normal. No pericardial effusion. Thoracic Vessels: No aortic aneurysm. Mediastinum and Kate: Mediastinal lymph nodes are suspicious by number borderline in size. Findings include a right paramidline precarinal lymph node on image 48/4 measuring 1.3 x 1.7 cm, a subcarinal lymph node on image 60/4 measuring 1.3 x 2.4 cm prominent right hilar adenopathy, and a AP window lymph node image 42/4 measuring 1.0 x 1 4 cm. Esophagus: No wall thickening. Small hiatal hernia. Upper Abdomen: Visualized upper abdomen solid organs and bowel loops appear normal. IMPRESSION: 1. No acute pulmonary emboli. 2. Constellation of findings is suspicious for a potential malignant process. 3. There is mediastinal and right hilar adenopathy which is nonspecific but potentially represents malignant involvement. This is not definite. There is also a interstitial process in the right lung, predominantly in the right upper lobe. This may potentially represent post radiation change. If the the patient has not had previous radiation, viral pneumonia. Additionally, interstitial spread of tumor can have a similar appearance. Suggest clinical correlation. Dictated by: Jorge Burkett M.D. on 01/20/2024 at 14:45 Approved by: Jorge Burkett M.D. on 01/20/2024 at 15:02 ECG Data Interpretation: ECG shows normal sinus rhythm at [address] segment changes poor R-wave progression MDM Narrative Medical decision making narrative: 68-year-old female recently diagnosed with pneumonia presenting with increasing dyspnea, pleuritic right-sided chest pain and new oxygen requirement. Differential diagnosis includes pneumonia with sepsis, pneumonia viral versus bacterial, pulmonary embolism, heart failure and ischemic heart disease. Imaging shows evidence of pneumonia versus malignancy and there was a right pleural effusion. If this is pneumonia it is likely atypical versus bacterial. Pulmonary embolism was not seen on imaging. ProBNP is normal, troponin is normal I do not think this is ischemic. I will order blood cultures and a full respiratory panel patient should be admitted to the hospitalist service. started ceftriaxone and doxycycline for empiric antibiotic coverage. Discharge Plan Departure Patient Disposition: Admitted As Inpatient Clinical Impression: Pneumonia, primary atypical Respiratory failure Qualifiers: Chronicity: acute Respiratory failure complication: hypoxia Qualified Code(s): J96.01 - Acute respiratory failure with hypoxia Admit Date/Time: 01/20/24 16:28 Admit Provider: Sampson York
--- NOTE | 2024-01-20 10:54 | DI.RAD.S_ITS ---
PROCEDURE: XR CHEST 2V INDICATIONS: sob TECHNIQUE: 2 views of the chest were acquired. COMPARISON: [facility], CR, XR CHEST 1V, 01/16/2024, 11:15. FINDINGS: Surgical changes and devices: None. Lungs and pleura: There is appearance of increased pulmonary vascularity. Minimal right effusion. Mild appearance of increased patchy opacities within the right hemithorax improved. Mediastinum: Mediastinal contours are normal. Heart size is normal. Bones and chest wall: No suspicious bony abnormalities. Soft tissues appear unremarkable. IMPRESSION: Improved appearance right hemithorax opacities. Dictated by: Liana Ribeiro M.D. on 01/20/2024 at 11:48 Approved by: Liana Ribeiro M.D. on 01/20/2024 at 11:49
--- NOTE | 2024-01-20 11:06 | PC.NURSE ---
Pt states she was dx w/ pneumonia x2days ago and is being treated with antibiotics. Pt states she has increasingly felt sob today. Pt states she smokes meth/fentanyl/cigarettes
[2024-01-20 11:52] LABS: Add Manual Diff / Slide Review YES; Hemoglobin 12.1 g/dL (12.0-16.0); Mean Corpuscular HGB Conc 33.6 % (30-36); Mean Corpuscular Volume 83.4 fL (80-100); Platelet Count 276 X10^3/uL (150-400); Red Blood Cell Count 4.32 X10^6/uL (4.0-5.2); Red Cell Distribution Width 14.3 % (11.6-14.8); White Blood Cell Count 13.1 X10^3/uL (4.5-11.0)
[2024-01-20 12:00] LABS: Alanine Aminotransferase 26 IU/L (<35); Albumin 3.5 g/dL (3.5-5.0); Albumin Globulin Ratio 0.9 (1.0-2.8); Alkaline Phosphatase 96 U/L (38-126); Aspartate Aminotransferase 23 IU/L (14-36); BUN Creatinine Ratio 17.3 (6-22); Bilirubin Total 0.6 mg/dL (0.2-1.3); Blood Urea Nitrogen 9 mg/dL (7-17); Calcium 8.8 mg/dL (8.4-10.2); Carbon Dioxide 33 mmol/L (22-32); Chloride 101 mmol/L (98-107); Estimated Glomerular Filt Rate > 60 mL/min (>60); Globulin 3.8 g/dL (1.7-4.1); Glucose 133 mg/dL (80-110); HEMOLYSIS < 15 (0-50); Potassium 3.3 mmol/L (3.4-5.1); Sodium 139 mmol/L (137-145); Total Protein 7.3 g/dL (6.3-8.2)
[2024-01-20 12:11] LABS: NT-proBNP (BNP-Adult 18+) 187 pg/mL (<125); Troponin I < 0.012 ng/mL (0.01-0.034)
[2024-01-20 12:13] LABS: Neutrophils Absolute Manual 9956 /uL (3000-5900); Total Cells Counted 100
[2024-01-20 12:14] LABS: RBC Morphology Normal Morphology
[2024-01-20] MEDS: METHADONE 10 MG TABLET 75 MG PO (13:05)
[2024-01-20 13:25] LABS: D Dimer 2487 ng/ml (<500)
--- NOTE | 2024-01-20 13:55 | DI.CT.S_ITS ---
PROCEDURE: CT ANGIO CHEST PE PROTOCOL INDICATIONS: PE suspected positive dimer TECHNIQUE: After the administration of intravenous contrast, 2 mm thick sections acquired from the pulmonary apices to the posterior costophrenic angles. 3-dimensional maximum intensity projection (MIP) coronal and sagittal reformats were then acquired through the thorax. For radiation dose reduction, the following was used: automated exposure control, adjustment of mA and/or kV according to patient size. COMPARISON: None. FINDINGS: Image quality: Diagnostic. Pulmonary arteries: Pulmonary arteries are normal in size, and demonstrate no intraluminal filling defects to suggest central pulmonary embolism. Lower Neck: No enlarged lymph nodes. Thyroid: No thyroid nodules which require sonographic follow up, per consensus guidelines. Axillae: No enlarged lymph nodes. Chest Wall: Unremarkable. Bones: Unremarkable. Lungs and Pleura: There is a [id number] somewhat lobulated right pleural effusion with a small amount of loculations. There is associated mild compressive atelectasis in the basilar portion of the right lung. There is a interstitial process involving the right upper lobe with extensive interstitial change and septal and paraseptal thickening. Heart: Heart size is normal. No pericardial effusion. Thoracic Vessels: No aortic aneurysm. Mediastinum and Kate: Mediastinal lymph nodes are suspicious by number borderline in size. Findings include a right paramidline precarinal lymph node on image 48/4 measuring 1.3 x 1.7 cm, a subcarinal lymph node on image 60/4 measuring 1.3 x 2.4 cm prominent right hilar adenopathy, and a AP window lymph node image 42/4 measuring 1.0 x 1 4 cm. Esophagus: No wall thickening. Small hiatal hernia. Upper Abdomen: Visualized upper abdomen solid organs and bowel loops appear normal. IMPRESSION: 1. No acute pulmonary emboli. 2. Constellation of findings is suspicious for a potential malignant process. 3. There is mediastinal and right hilar adenopathy which is nonspecific but potentially represents malignant involvement. This is not definite. There is also a interstitial process in the right lung, predominantly in the right upper lobe. This may potentially represent post radiation change. If the the patient has not had previous radiation, viral pneumonia. Additionally, interstitial spread of tumor can have a similar appearance. Suggest clinical correlation. Dictated by: Jorge Burkett M.D. on 01/20/2024 at 14:45 Approved by: Jorge Burkett M.D. on 01/20/2024 at 15:02
--- NOTE | 2024-01-20 16:08 | PC.NURSE ---
Pt refusing nurse to draw blood cultures
--- NOTE | 2024-01-20 16:57 | PC.NURSE ---
Informed Hospitalist Dr. York RN's were unable to obtain fresh IV stick for blood cultures. 2 nurse try. pt refused further attempts. MD aware. MD aware of pt pain level.
[2024-01-20] MEDS: cefTRIAXone 2,000 MG in SODIUM CHLORIDE 0.9% 100 ML 200 MG IV (17:03)
--- NOTE | 2024-01-20 17:09 | P.HP_ITS ---
History of Present Illness History of Present Illness Date Patient Seen: 01/20/24 Time Patient Seen: 17:09 Chief complaint: r. rib pain w/ coughing Narrative: She is a 68-year-old female with a history of IVDU. In the past she is used IV drugs including heroin and methamphetamine. She is currently on the methadone program in [place] but lives in [place]. She takes 75 mg a day of methadone, this was confirmed today and she was given a dose in the emergency department. She was discharged on January 16 for a probable pneumonia. She had been in the hospital for 1 day on antibiotics and was sent out on oral antibiotics, specifically Augmentin. She has had pleuritic chest pain for the last 2 days which correlates to a small pleural effusion seen on CT scan today. She notes that she has been ill for about a week. She currently does use fentanyl pills, blues as well as occasional methamphetamines. She smokes cigarettes, about a pack a day. In the emergency department and IV access was placed in cultures were obtained and she was given empiric antibiotics for pneumonia. She denies fevers, or chills. She is chronic right knee pain from a knee replacement. CT scan indicates no pulmonary emboli, there is mediastinal and right hilar adenopathy with concern for infectious versus malignant. There is an interstitial process in the right upper lobe. She is chronic constipation, denies any hematuria or dysuria, no diarrhea or blood per rectum or melena. No nausea, or vomiting. She was not hypoxic in the emergency department. [facility] Social History household members: significant other Smoking Status: Current every day smoker Meds Home Medications and Allergies Home Medications Medication Instructions Recorded Confirmed Type albuterol sulfate 90 mcg/actuation 2 puff inhalation TID-QID PRN SOB 01/16/24 01/16/24 History aerosol inhaler bupropion HCl 150 mg 24 hr tablet, 150 mg PO QAM 01/16/24 01/16/24 History extended release fluticasone propionate 230 2 puff inhalation BID 01/16/24 01/16/24 History mcg-salmeterol 21 mcg/actuation HFA inhaler levothyroxine 112 mcg tablet 112 mcg PO DAILY 01/16/24 01/16/24 History omeprazole 40 mg capsule,delayed 40 mg PO DAILY 01/16/24 01/16/24 History release tiotropium bromide 2.5 1 puff inhalation DAILY 01/16/24 01/16/24 History mcg/actuation mist for inhalation (Spiriva Respimat) amoxicillin 875 mg-potassium 1 tab PO BID 5 days #10 tabs 01/17/24 Rx clavulanate 125 mg tablet doxycycline hyclate 100 mg tablet 100 mg PO BID 5 days #10 tabs 01/17/24 Rx nystatin 100,000 unit/gram topical 1 applic topical DAILY PRN rash 01/17/24 Rx powder #30 grams Allergies Allergy/AdvReac Type Severity Reaction Status Date / Time morphine Allergy Verified 01/16/24 10:38 Review of Systems Review of Systems Narrative: All else reviewed and otherwise unremarkable except as noted in the history and physical. Exam Vital Signs (past 8 hours): - 01/20/24 10:37 01/20/24 12:01 01/20/24 12:02 Temperature 98.9 F Pulse Rate 94 H 90 Respiratory Rate 22 Blood Pressure 143/67 H 117/57 L Pulse Oximetry 91 94 Oxygen Delivery Method Room Air Oxygen Flow Rate 01/20/24 12:02 01/20/24 12:30 01/20/24 12:30 Temperature Pulse Rate 90 86 Respiratory Rate Blood Pressure 133/63 Pulse Oximetry 93 95 Oxygen Delivery Method Oxygen Flow Rate 01/20/24 13:00 01/20/24 13:00 01/20/24 13:30 Temperature Pulse Rate 87 Respiratory Rate Blood Pressure 129/62 154/70 H Pulse Oximetry 95 Oxygen Delivery Method Nasal Cannula Oxygen Flow Rate 0.5 01/20/24 13:30 01/20/24 14:00 01/20/24 14:00 Temperature Pulse Rate 88 85 Respiratory Rate Blood Pressure 127/64 Pulse Oximetry 91 93 Oxygen Delivery Method Oxygen Flow Rate 01/20/24 14:42 01/20/24 14:43 01/20/24 14:43 Temperature Pulse Rate 86 85 Respiratory Rate Blood Pressure 153/69 H Pulse Oximetry 93 93 Oxygen Delivery Method Oxygen Flow Rate 01/20/24 15:00 01/20/24 15:00 01/20/24 15:30 Temperature Pulse Rate 82 Respiratory Rate Blood Pressure 120/59 L 127/68 Pulse Oximetry 93 Oxygen Delivery Method Oxygen Flow Rate 01/20/24 15:30 01/20/24 16:00 01/20/24 16:00 Temperature Pulse Rate 83 84 Respiratory Rate Blood Pressure 133/79 Pulse Oximetry 94 87 L Oxygen Delivery Method Oxygen Flow Rate 01/20/24 16:30 01/20/24 16:30 Temperature Pulse Rate 82 Respiratory Rate Blood Pressure 146/67 H Pulse Oximetry 93 Oxygen Delivery Method Oxygen Flow Rate Oxygen Delivery Method Nasal Cannula Oxygen Flow Rate 0.5 Narrative Exam Narrative: NAD, alert and oriented, fluent speech, calm. Nontoxic, chronically ill in appearance. Normocephalic skull, EOMI, anicteric sclera, symmetric pupils. Oropharynx unremarkable, no droop. Neck supple, midline trachea, no adenopathy. Lungs clear, normal rate and effort. Diminished breath sounds on the right base. Heart regular, no murmur gallop or rub. Abdomen is soft, non distended and non tender. Extremities are free of edema. Skin is free of rash or lesions. Joints are not swollen or deformed. Judgment appears to be normal. She is stigmata of previous IVDU. Her knees are not swollen or warm. She has no red skin. Objective Imaging CT scan - chest: Radiologist's impression: IMPRESSION: 1. No acute pulmonary emboli. 2. Constellation of findings is suspicious for a potential malignant process. 3. There is mediastinal and right hilar adenopathy which is nonspecific but potentially represents malignant involvement. This is not definite. There is also a interstitial process in the right lung, predominantly in the right upper lobe. This may potentially represent post radiation change. If the the patient has not had previous radiation, viral pneumonia. Additionally, interstitial spread of tumor can have a similar appearance. Suggest clinical correlation. Labs 01/20/24 11:40 01/20/24 11:40 Labs: Laboratory Results - last 24 hr 01/20/24 11:40 WBC 13.1 H RBC 4.32 Hgb 12.1 Hct 36.0 MCV 83.4 MCH 28.0 MCHC 33.6 RDW 14.3 Plt Count 276 Neut % (Auto) Not Reportable Lymph % (Auto) Not Reportable Miner % (Auto) Not Reportable Eos % (Auto) Not Reportable Baso % (Auto) Not Reportable Lymph # (Auto) Not Reportable Miner # (Auto) Not Reportable Baso # (Auto) Not Reportable Total Counted 100 Seg Neutrophils % 66.0 Band Neutrophils % 10.0 H Lymphocytes % (Manual) 6.0 L Monocytes % (Manual) 16.0 H Eosinophils % (Manual) 2.0 Neutrophils # (Manual) 9956 H RBC Morphology Normal morphology D-Dimer 2487 H Sodium 139 Potassium 3.3 L Chloride 101 Carbon Dioxide 33 H BUN 9 Creatinine 0.52 Estimated GFR > 60 BUN/Creatinine Ratio 17.3 Glucose 133 H Calcium 8.8 Total Bilirubin 0.6 AST 23 ALT 26 Alkaline Phosphatase 96 Troponin I < 0.012 NT-Pro-B Natriuret Pep 187 H Total Protein 7.3 Albumin 3.5 Globulin 3.8 Albumin/Globulin Ratio 0.9 L Procalcitonin 0.30 Assessment & Plan Assessment & Plan narrative: 1. Probable pneumonia of the right upper lobe, present on admission and active. 2. Reactive hilar adenopathy, present on admission and active. 3. Opiate dependence on methadone 75 mg a day, present on admission and active. 4. Long history of drug use, no current IV drug use but ongoing use of oral fentanyl and methamphetamine. Present on admission and active. 5. Hypothyroidism, present on admission and active. 6. Depression, present on admission and active. She will be admitted inpatient status, anticipate 2 midnights of medical necessity for hospital level surfaces. Plan: -IV antibiotics for cap. Blood cultures. We will try to obtain sputum culture as well. All over the weekend will order ultrasound to rule out effusion. If this is present in in volume may pursue a thoracentesis for cell analysis and cytology. -continue methadone 75 daily. -Dilaudid IV as needed breakthrough pain over the 1st 12-24 hours. We will attempt to move oral oxycodone at that point. -continue usual medications for thyroid and depression. She is full resuscitation. Her partner of 24 years is her proxy decision maker. Time Spent With Patient Time with patient: 30 to 49 minutes with 50% spent counseling/coordinating care Quality MIPS - Admit I confirm the patient?s Advance Care Plan is present, Code status is documented, Surrogate decision maker is in patient?s record [If Yes, STOP here]: Yes MIPS - Meds 'Current medications' to include all prescriptions, [id number] products, herbals, cannabis/cannabidiol products, and vitamin/mineral/dietary (nutritional) supplements. I have utilized all available resources to obtain, update, or review the patient?s current medications. [If Yes, STOP here]: Yes
--- NOTE | 2024-01-20 17:14 | PC.NURSE ---
Report given to Carolynn MORRELL.
--- NOTE | 2024-01-20 17:23 | DI.US.S_ITS ---
PROCEDURE: US CHEST COMPARISON: None. INDICATIONS: Assess pleural fluid FINDINGS: Small right pleural fluid. No left pleural fluid. IMPRESSION: Small right pleural fluid. No left pleural fluid. Dictated by: Ramon Thompson M.D. on 01/21/2024 at 6:40 Approved by: Ramon Thompson M.D. on 01/21/2024 at 6:40
[2024-01-20 17:54] LABS: Adenovirus Not Detected (Not Detect); B. parapertussis Not Detected (Not Detecte); Bordetella pertussis Not Detected (Not Detect); Chlamydophila pneumoniae Not Detected (Not Detect); Coronavirus 229E Not Detected (Not Detect); Coronavirus HKU1 Not Detected (Not Detect); Coronavirus NL 63 Not Detected (Not Detect); Coronavirus OC43 Not Detected (Not Detect); Human Metapneumovirus Not Detected (Not Detect); Human Rhinovirus/Enterovirus Not Detected (Not Detect); Influenza A Not Detected (Not Detect); Influenza B Not Detected (Not Detect); Mycoplasma pneumoniae Not Detected (Not Detect); Parainfluenza Virus 1 Not Detected (Not Detect); Parainfluenza Virus 2 Not Detected (Not Detect); Parainfluenza Virus 3 Not Detected (Not Detect); Parainfluenza Virus 4 Not Detected (Not Detect); Respiratory Syncytial Virus Not Detected (Not Detect); SARS- CoV-2 Not Detected (Not Detecte)
[2024-01-20] MEDS: DOXYCYCLINE 100 MG in SODIUM CHLORIDE 0.9% 100 ML IV (18:22)
[2024-01-20] MEDS: OXYCODONE IR 5 MG TABLET PO ×2 (18:23→22:34)
[2024-01-20] MEDS: DEXTROSE 5%-0.9% NS 1,000 ML 100 ML IV (18:23)
[2024-01-20] MEDS: DOCUSATE 100 MG CAPSULE PO (20:24)
[2024-01-20] MEDS: HYDROMORPHONE 0.5 MG INJ 1 MG IV (20:24)
[2024-01-20] MEDS: HEPARIN 5,000 UNIT/ML VIAL 5000 UNIT SUBCUT (20:24)
[2024-01-20] MEDS: IPRATROPIUM 0.5 MG/2.5 ML NEB INH (20:51)
[2024-01-20] MEDS: ALBUTEROL 2.5 MG/3 ML NEB (ADULT) INH (20:51)
[2024-01-20] MEDS: BUDESONIDE 0.5 MG/2 ML NEB INH (20:51)
[2024-01-21] VITALS (11 sets, daily range): BP systolic 113–152; BP diastolic 62–81; PULSE 80–88; RESP 14–22; TEMP 35.9–36.3; O2SAT 90–95
[2024-01-21] MEDS: HYDROMORPHONE 0.5 MG INJ 1 MG IV ×6 (04:19→20:32)
[2024-01-21] MEDS: DEXTROSE 5%-0.9% NS 1,000 ML 100 ML IV ×2 (04:27→13:52)
[2024-01-21] MEDS: LEVOTHYROXINE 112 MCG TABLET PO (05:19)
[2024-01-21] MEDS: DOXYCYCLINE 100 MG in SODIUM CHLORIDE 0.9% 100 ML IV ×2 (05:19→18:10)
[2024-01-21] MEDS: PANTOPRAZOLE DR 40 MG TABLET PO (05:19)
[2024-01-21] MEDS: ALBUTEROL/IPRATROPIUM 3 ML AMPUL INH ×3 (08:33→18:57)
[2024-01-21] MEDS: BUDESONIDE 0.5 MG/2 ML NEB INH ×2 (08:33→18:57)
[2024-01-21] MEDS: buPROPion XL 150 MG TAB PO (09:23)
[2024-01-21] MEDS: METHADONE 10 MG TABLET 75 MG PO (09:23)
[2024-01-21] MEDS: HEPARIN 5,000 UNIT/ML VIAL 5000 UNIT SUBCUT ×2 (09:24→20:32)
[2024-01-21] MEDS: OXYCODONE IR 5 MG TABLET PO (11:40)
--- NOTE | 2024-01-21 14:28 | CM.DANOTE ---
Initial DCP Assessment Visit Note Reviewed EMR and team rounds for pt's medical status and anticipated d/c needs. This is a re-admit, pt just discharged on 01/16 for same concerns of community acquired pneumonia, shortness of breath, and weakness. She was given 1-night of IV ABO's, then discharged on oral ABO's. She's a chronic IV drug user and is connected to the [facility] clinic, where she goes daily. She presented to the ED via EMS from the methadone clinic after sudden onset SOB and right-sided chest pain. She was found to have worsening pneumonia w/small right sided pleural effusion. She was restarted on IV ABO's and started on pain management in the ED, then admitted for further tx/evaluation. She resides modified [facility]. with her Life Partner in [place], who will transport her once she's been medically cleared for d/c. Payor: José Miguel Deleon PCP: Zenaida Clemons Discharge Planning/Care Management CM Discharge Assessment Start: 01/21/24 14:25 Freq: Status: Active Protocol: Document 01/21/24 14:25 DPL (Rec: 01/21/24 14:28 DPL [id number]) Discharge Planning Assessment Assigned Fiberglass Tube Molder KATIE Brito Advance Directives? No Advance Directives on File No History Provided By Patient,Medical Record Has Patient been admitted in last 30 Yes days? Comment 01/16/24-01/17/24 Prior Living Arrangements House Household Members significant other Type of transporation used prior to Relies on Others admit Independent with ADL's No: Modified independent Is patient alert and oriented? Yes [facility] for Another No Comment Daily methadone clinic. DME Already Rented / Owned FWW / Walker Comment Pending final recommendations of therapies and efficacy of IV ABO's. Barriers to Discharge No Discharge Plan Home Referrals Initiated None needed Additional Comment Will monitor for any further evolving needs/recommendations . If patient plan is home with home health No : Has signed face to face form been completed? If patient plan is SNF: Has PASSR been No completed? Whiteboard Updated in Patient Room with Yes name and ext. # of Fiberglass Tube Molder Review Status In Process Please Provide Date Initial DC 01/21/24 Assessment Was Performed
--- NOTE | 2024-01-21 15:30 | PC.NURSE ---
notified provider that patient refused blood draw and she was asked multiple times. no new orders.
[2024-01-21] MEDS: OXYCODONE IR 5 MG TABLET 10 MG PO ×2 (16:45→22:56)
[2024-01-21] MEDS: cefTRIAXone 2,000 MG in SODIUM CHLORIDE 0.9% 100 ML 200 MG IV (17:25)
[2024-01-21] MEDS: POTASSIUM CHLORIDE 20 MEQ TAB PO (17:25)
--- NOTE | 2024-01-21 17:58 | PM.PN.1 ---
Subjective Subjective Interval history: 68-year-old female with substance use disorder, presently on methadone maintenance program (hx of IVDU of heroin/meth), previously admitted to this hospital from January 15 through January 16 for pneumonia, who was readmitted with progressive pleuritic chest pain. She was placed on IV ceftriaxone and doxycycline. She is receiving her usual outpatient methadone maintenance. She is also on as needed oxycodone 5 mg q.3 hours, as well as hydromorphone 1 mg IV q.2 hours as needed. She complains of ongoing right-sided pain. She states it is no better than it was on admission. She feels she did not have her pain addressed well overnight. She is asking to have the medications increased. She reports she is getting very little rest. Exam Vital Signs (past 8 hours): - 01/21/24 11:13 01/21/24 16:00 Temperature 97.1 F L Pulse Rate 81 87 Respiratory Rate 20 16 Blood Pressure 118/64 Pulse Oximetry 92 93 Oxygen Delivery Method Nasal Cannula Oxygen Flow Rate 2 0 Fraction of Inspired Oxygen 28 SaO2/FiO2 Ratio 332 Oxygen Delivery Method Nasal Cannula Oxygen Flow Rate 0 Narrative Exam Narrative: GEN: Uncomfortable appearing middle-aged female, tearful at times, Alert and oriented x 3 HEENT:NC, Face symmetric CHEST: Respiratory excursions symmetric, diffusely diminished but CTAB CV: RRR, no M/R/G ABD: Soft, NT/ND, BT present in all 4 quadrants, no organomegaly or masses EXTR: warm, well perfused, no C/C/E SKIN: warm and dry, no rash, multiple areas of dermatitis noted on her hands and arms NEURO: Alert and oriented x 3, nonfocal Objective Labs 01/20/24 11:40 01/20/24 11:40 Labs: Laboratory Results - last 24 hr 01/20/24 15:49 Chlamy pneumoniae PCR Not detected Adenovirus (PCR) Not detected B.parapertussis DNA PCR Not detected Coronavirus OC43 (PCR) Not detected Coronavirus HKU1 (PCR) Not detected Coronavirus 229E (PCR) Not detected SARS-CoV-2 (PCR) Not detected Coronavirus NL63 (PCR) Not detected Human Metapneumovir PCR Not detected Influenza Type A (PCR) Not detected Influenza Type B (PCR) Not detected M. pneumoniae (PCR) Not detected Parainfluenza 1 (PCR) Not detected Parainfluenza 2 (PCR) Not detected Parainfluenza 3 (PCR) Not detected Parainfluenza 4 (PCR) Not detected RSV (PCR) Not detected Entero/Rhino (PCR) Not detected PFSH Social History household members: significant other Smoking Status: Current every day smoker alcohol intake: current Assessment & Plan Assessment & Plan narrative: 1. Probable right upper lobe pneumonia with pleuritic chest pain Will add Toradol and increase her oxycodone from 5-10 mg. I believe she will get better pain control with oral medication rather than IV as the oral will last longer. The NSAIDs should help with the pleuritic pain as well. Advised she would benefit from use of spirometry, as a few does not work on deep breathing she is at increased risk for parapneumonic effusion/empyema. 2. Mediastinal/hilar adenopathy Likely reactive related to her acute infection. Likely will need outpatient follow-up to ensure resolution once her infection has been treated 3. Opioid use disorder She remains on methadone maintenance at 75 mg daily. This has been continued. She continues to use oral fentanyl and methamphetamines. Previous history of IV drug use but none currently 4. Hypokalemia Repleting Code status Full Prophylaxis On heparin Disposition Likely Home at discharge Quality VTE Deep Vein Thrombosis/Pulmonary Embolism Present on Admission: No
[2024-01-21] MEDS: KETOROLAC 30 MG/ML VIAL 15 MG IV (18:24)
[2024-01-21] MEDS: DOCUSATE 100 MG CAPSULE PO (20:32)
[2024-01-22] VITALS (7 sets, daily range): BP systolic 119–155; BP diastolic 66–81; PULSE 80–94; RESP 16–22; TEMP 36.1–37; O2SAT 91–96
[2024-01-22] MEDS: HYDROMORPHONE 0.5 MG INJ 1 MG IV ×4 (00:54→23:20)
[2024-01-22] MEDS: OXYCODONE IR 5 MG TABLET 10 MG PO ×2 (03:59→08:19)
[2024-01-22] MEDS: DOXYCYCLINE 100 MG in SODIUM CHLORIDE 0.9% 100 ML IV ×2 (06:11→18:14)
[2024-01-22] MEDS: PANTOPRAZOLE DR 40 MG TABLET PO (06:11)
[2024-01-22] MEDS: LEVOTHYROXINE 112 MCG TABLET PO (06:11)
--- NOTE | 2024-01-22 06:52 | PC.NURSE ---
Pt refused lab draw from nurse and asked for pain meds for R side pain
[2024-01-22] MEDS: POTASSIUM CHLORIDE 20 MEQ TAB PO (08:28)
[2024-01-22] MEDS: DOCUSATE 100 MG CAPSULE PO ×2 (10:42→20:40)
[2024-01-22] MEDS: metroNIDAZOLE 500 MG TABLET PO ×3 (10:42→20:40)
[2024-01-22] MEDS: METHADONE 10 MG TABLET 75 MG PO (10:42)
[2024-01-22] MEDS: buPROPion XL 150 MG TAB PO (10:42)
[2024-01-22] MEDS: HEPARIN 5,000 UNIT/ML VIAL 5000 UNIT SUBCUT ×2 (10:43→20:40)
[2024-01-22] MEDS: ALBUTEROL/IPRATROPIUM 3 ML AMPUL INH ×2 (12:39→19:48)
--- NOTE | 2024-01-22 15:48 | CM.DPC ---
DCP Cont: Per MD, will attempt to wean pt off O2 today and still receiving IV-Abx and not yet stable for discharge especially as pt is a readmit from last week. SW met bedside with pt and Sig Other and explained role and pt confirms that she gets MAT tx at [facility] daily and they provide transport for her and Sig Other is not yet established with [facility] for tx at this time but Sig Other is supportive of pt. Neither drive and rely on friends to transport or pt confirms she has Medicaid transportation benefits. Pt states she is getting MAT tx at [facility] but also recently started grief counseling with a therapist at [facility] as pt states two of her Dtrs recently . Pt states she is just starting to get some of her Medical care at [facility] as well. Although pt states she has an Establish Care appointment with a new PCP Provider in [place] in [place] next week. Pt states she is established with [facility] and has an assigned Webfocus Developer Renetta who is helping her with ongoing therapy and behavioral health. SW inquired if pt has applied for [employer] and pt denies completing any application yet but states she feels [employer] CG is needed and Sig Other provides assist daily with ADLs due to pt's chronic knee pain that pt is working to address with PCP and new referral to Ortho. Pt and SIg Other interested in [employer] and SW agreeable to assist with calling [facility] tomorrow Mon when the office opens to determine if [employer] application needed. Plan: SW to follow closely for plan of likely discharge back home to [place] with Sig Other when medically stable and to assist with NW and [employer] information prior to discharge. Pt may need Medicaid transport home at d/c. KATIE Robbins
[2024-01-22] MEDS: OXYCODONE IR 5 MG TABLET 15 MG PO ×2 (15:51→20:40)
--- NOTE | 2024-01-22 16:36 | P.PN_ITS ---
Subjective Subjective Interval history: Patient still having R pleuritic pain but it is improving. Flagyl added in case of empyema. Still having pain so oxy increased. Exam Vital Signs (past 8 hours): - 01/22/24 12:39 01/22/24 14:00 Temperature 97 F L Pulse Rate 86 94 H Respiratory Rate 18 22 Blood Pressure 142/78 H Pulse Oximetry 95 91 Oxygen Delivery Method Nasal Cannula Oxygen Flow Rate 2 0 Fraction of Inspired Oxygen 28 Fraction of Inspired Oxygen 28 SaO2/FiO2 Ratio 339 Oxygen Delivery Method Nasal Cannula Oxygen Flow Rate 0 Narrative Exam Narrative: GEN: Uncomfortable appearing middle-aged female, alert and oriented x 3 HEENT:NC, Face symmetric CHEST: Respiratory excursions symmetric, reduced breath sounds at R lung base CV: RRR, no M/R/G ABD: Soft, NT/ND, BT present in all 4 quadrants, no organomegaly or masses EXTR: warm, well perfused, no C/C/E SKIN: warm and dry, no rash, multiple areas of dermatitis noted on her hands and arms NEURO: Alert and oriented x 3, nonfocal Objective Labs 01/20/24 11:40 01/20/24 11:40 [facility] Social History household members: significant other Smoking Status: Current every day smoker alcohol intake: current Assessment & Plan Assessment & Plan narrative: 1. Probable right upper lobe pneumonia with pleuritic chest pain 2nd admission for PNA, after having taken po abx but still having severe R sided pain with deep breaths. Chest US shows small R pleural effusion without septations. Continue rocephin/doxy and added flagyl in case of empyema. Continue pain control with IV dilaudid, oxy and toradol. Patient has high opioid tolerance as she smokes fentanyl daily. 2. Mediastinal/hilar adenopathy Likely reactive related to her acute infection. Likely will need outpatient follow-up to ensure resolution once her infection has been treated 3. Opioid use disorder She remains on methadone maintenance at 75 mg daily. This has been continued. She continues to use oral fentanyl and methamphetamines. Previous history of IV drug use but none currently. 4. Hypokalemia Repleting Code status Full Prophylaxis On heparin Disposition Home in 1-2 days. Quality VTE Deep Vein Thrombosis/Pulmonary Embolism Present on Admission: No
[2024-01-22] MEDS: cefTRIAXone 2,000 MG in SODIUM CHLORIDE 0.9% 100 ML 200 MG IV (16:54)
[2024-01-22] MEDS: DEXTROSE 5%-0.9% NS 1,000 ML 100 ML IV (16:54)
[2024-01-22] MEDS: BUDESONIDE 0.5 MG/2 ML NEB INH (19:48)
[2024-01-23 01:00] VITALS: BP 147/94; PULSE 88; RESP 22; TEMP 36.4; O2SAT 93
[2024-01-23] MEDS: OXYCODONE IR 5 MG TABLET 15 MG PO ×2 (03:28→17:02)
[2024-01-23] MEDS: PANTOPRAZOLE DR 40 MG TABLET PO (06:12)
[2024-01-23] MEDS: LEVOTHYROXINE 112 MCG TABLET PO (06:12)
[2024-01-23] MEDS: DOXYCYCLINE 100 MG in SODIUM CHLORIDE 0.9% 100 ML IV (06:12)
[2024-01-23] MEDS: HYDROMORPHONE 0.5 MG INJ 1 MG IV ×2 (06:12→15:26)
[2024-01-23 06:27] VITALS: BP 158/85; PULSE 84; RESP 20; TEMP 36.6; O2SAT 94
[2024-01-23 07:00] VITALS: O2SAT 92
[2024-01-23 07:48] VITALS: PULSE 96; RESP 20; O2SAT 96
[2024-01-23] MEDS: ALBUTEROL/IPRATROPIUM 3 ML AMPUL INH ×2 (07:48→15:38)
[2024-01-23] MEDS: BUDESONIDE 0.5 MG/2 ML NEB INH (07:48)
[2024-01-23 08:00] VITALS: BP 145/84; PULSE 92; RESP 18; TEMP 36.9; O2SAT 92
[2024-01-23] MEDS: DOCUSATE 100 MG CAPSULE PO (09:08)
[2024-01-23] MEDS: metroNIDAZOLE 500 MG TABLET PO ×2 (09:08→15:26)
[2024-01-23] MEDS: buPROPion XL 150 MG TAB PO (09:08)
[2024-01-23] MEDS: METHADONE 10 MG TABLET 75 MG PO (09:09)
--- NOTE | 2024-01-23 10:47 | CM.DPC ---
Addendum entered by KATIE Robbins 01/23/24 14:30: ADD: Per , pt stable for discharge today on oral abx and oxycodone. ROMAINE met bedside with pt and initially she confirms she needs Medicaid Transport with [facility] pickup but then RT arrived bedside and might need to do new Home O2 assessment as pt remains on oxygen and feels she needs it for transport back to [place]. Pt then was able to get ahold of her Sig Other Jett who is able to get transport from a friend to bring pt's home oxygen portable device with him and some change of clothing and pt no longer needs Medicaid Transport. Pt requesting not to have Home O2 eval as she states she has a Commutator Operator appointment already this week on and looking into the portable oxygen vest. ROMAINE updated RN and traveling buyer. Plan: Patient to d/c home today via Sig Other/Friend POV and outpt f/u with PCP, Commutator Operator, and [place]. KATIE Robbins Original Note: DCP Cont: Per , pt might be medically stable to discharge today vs tomorrow pending her labs and oxygen needs today. ROMAINE met bedside with pt again and updated her on possible d/c today vs tomorrow and pt agreeable to d/c when medically stable but does confirm she will need Medicaid Transport at d/c. SW initiated Medicaid Transport form but waiting to see if pt will d/c today and if she needs to picker Rx from her pharmacy at [facility] in [place] prior to faxing form to Medicaid. ROMAINE provided pt with the Medicaid [employer] application and showed option of online completion or if she completes the paper form prior to discharge then SW can fax completed application to Medicaid. Pt appreciative and SW explained calling [facility] and pt not currently showing as assigned to a caser shoe parts. Pt confirms that she has home oxygen at baseline in case she still needs oxygen at discharge. Plan: SW to follow closely for plan of discharge home today vs tomorrow when medically stable and need to fax in Medicaid Transport form [place] as soon as discharge orders placed as pt resides in [place] and may also need Rx picked up on way home at [facility] off [address]. KATIE Robbins
[2024-01-23 12:01] LABS: Add Manual Diff / Slide Review NO; Basophils Absolute Auto 100 /uL (0-100); Basophils Percent Auto 1.2 % (0-2); Eosinophils Absolute Auto 300 /uL (0-450); Eosinophils Percent Auto 4.2 % (2-4); Hematocrit 34.9 % (36-46); Hemoglobin 11.5 g/dL (12.0-16.0); Lymphocytes Absolute Auto 1100 /uL (1100-4500); Lymphocytes Percent Auto 15.5 % (25-40); Mean Corpuscular Hemoglobin 27.3 PG (26-34); Mean Corpuscular Volume 82.7 fL (80-100); Monocytes Absolute Auto 400 /uL (0-900); Monocytes Percent Auto 5.2 % (3-14); Neutrophils Absolute Auto 5200 /uL (1500-7000); Neutrophils Percent Auto 73.9 % (50-75); Platelet Count 290 X10^3/uL (150-400); Red Blood Cell Count 4.22 X10^6/uL (4.0-5.2); Red Cell Distribution Width 14.1 % (11.6-14.8)
[2024-01-23 12:16] LABS: Alanine Aminotransferase 22 IU/L (<35); Albumin 2.9 g/dL (3.5-5.0); Albumin Globulin Ratio 0.8 (1.0-2.8); Alkaline Phosphatase 74 U/L (38-126); Aspartate Aminotransferase 22 IU/L (14-36); BUN Creatinine Ratio 20.4 (6-22); Bilirubin Total 0.4 mg/dL (0.2-1.3); Blood Urea Nitrogen 10 mg/dL (7-17); Calcium 8.3 mg/dL (8.4-10.2); Carbon Dioxide 33 mmol/L (22-32); Chloride 106 mmol/L (98-107); Estimated Glomerular Filt Rate > 60 mL/min (>60); Globulin 3.5 g/dL (1.7-4.1); Glucose 119 mg/dL (80-110); HEMOLYSIS < 15 (0-50); Potassium 3.9 mmol/L (3.4-5.1); Sodium 140 mmol/L (137-145); Total Protein 6.4 g/dL (6.3-8.2)
--- NOTE | 2024-01-23 13:44 | PM.DS.1 ---
History of Present Illness History of Present Illness Chief complaint: r. rib pain w/ coughing Narrative: She is a 68-year-old female with a history of IVDU. In the past she is used IV drugs including heroin and methamphetamine. She is currently on the methadone program in [place] but lives in [place]. She takes 75 mg a day of methadone, this was confirmed today and she was given a dose in the emergency department. She was discharged on January 16 for a probable pneumonia. She had been in the hospital for 1 day on antibiotics and was sent out on oral antibiotics, specifically Augmentin. She has had pleuritic chest pain for the last 2 days which correlates to a small pleural effusion seen on CT scan today. She notes that she has been ill for about a week. She currently does use fentanyl pills, blues as well as occasional methamphetamines. She smokes cigarettes, about a pack a day. In the emergency department and IV access was placed in cultures were obtained and she was given empiric antibiotics for pneumonia. She denies fevers, or chills. She is chronic right knee pain from a knee replacement. CT scan indicates no pulmonary emboli, there is mediastinal and right hilar adenopathy with concern for infectious versus malignant. There is an interstitial process in the right upper lobe. She is chronic constipation, denies any hematuria or dysuria, no diarrhea or blood per rectum or melena. No nausea, or vomiting. She was not hypoxic in the emergency department. Discharge Providers Provider Date of admission: 01/20/24 16:28 Discharge Date: 01/23/24 Primary care physician: Zoie Clemons DO Consults: None. Discharge provider: Sampson York MD Summary Hospital Course Discharge Diagnosis: 1. Right upper lobe pneumonia with pleuritic chest pain and small effusion, improved. 2. Mediastinal/hilar adenopathy (likely infectious), improved. Likely reactive related to her acute infection. Likely will need outpatient follow-up to ensure resolution once her infection has been treated. She sees her pulmologist next week in [place]. 3. Opioid use disorder with dependence, stable. She remains on methadone maintenance at 75 mg daily. 4. Hypokalemia, improved. Repleting 5. Chronic hypoxic respiratory failure, stable. Hospital Course: The patient has history of continuous opiate dependence and takes methadone 75 mg daily at the methadone clinic. She also uses fentanyl from the street. The patient presented after being discharge on Augmentin for a pneumonia with pleuritic chest pain which was severe. On CT scan she would minimal effusion, an ultrasound revealed a small pleural effusion. She was treated with pain medication and her usual methadone dose and ultimately anti-inflammatories were added with good improvement of pain. It was felt the air-fluid collection was too small to tap and very likely did not represent a complication that would require drainage such as an empyema. The patient was felt to be stable for discharge with close follow up. She has use oxygen 2 L at home, and has an appointment with her partner integration planner in [place] next week. Her white count normalized with antibiotics and pain control measures here. She had no fevers. Status at Discharge Cognitive/behavioral status at discharge: oriented Functional status at discharge: independent ambulation Time Spent with Patient Time spent: Greater than 30 minutes Exam Vital Signs (past 8 hours): - 01/23/24 06:27 01/23/24 07:00 01/23/24 07:48 Temperature 97.8 F Pulse Rate 84 96 H Respiratory Rate 20 20 Blood Pressure 158/85 H Pulse Oximetry 94 92 96 Oxygen Delivery Method Nasal Cannula Nasal Cannula Oxygen Flow Rate 0 2 2 Fraction of Inspired Oxygen 28 01/23/24 08:00 Temperature 98.5 F Pulse Rate 92 H Respiratory Rate 18 Blood Pressure 145/84 H Pulse Oximetry 92 Oxygen Delivery Method Oxygen Flow Rate 2 Fraction of Inspired Oxygen Fraction of Inspired Oxygen 28 SaO2/FiO2 Ratio 342 Oxygen Delivery Method Nasal Cannula Oxygen Flow Rate 2 Narrative Exam Narrative: NAD, alert and oriented. Fluent speech. Lungs are clear, normal rate and effort. Heart is regular, no murmur gallop or rub. Abdomen is soft, non distended. Extremities are free of edema. Objective Imaging CT scan - chest: Radiologist's impression: 1. No acute pulmonary emboli. 2. Constellation of findings is suspicious for a potential malignant process. 3. There is mediastinal and right hilar adenopathy which is nonspecific but potentially represents malignant involvement. This is not definite. There is also a interstitial process in the right lung, predominantly in the right upper lobe. This may potentially represent post radiation change. If the the patient has not had previous radiation, viral pneumonia. Additionally, interstitial spread of tumor can have a similar appearance. Suggest clinical correlation. Labs 01/23/24 11:53 01/23/24 11:53 Labs: Laboratory Results - last 24 hr 01/23/24 11:53 WBC 7.0 RBC 4.22 Hgb 11.5 L Hct 34.9 L MCV 82.7 MCH 27.3 MCHC 33.0 RDW 14.1 Plt Count 290 Neut % (Auto) 73.9 Lymph % (Auto) 15.5 L Crockett % (Auto) 5.2 Eos % (Auto) 4.2 H Baso % (Auto) 1.2 Neut # (Auto) 5200 Lymph # (Auto) 1100 [place]ckett # (Auto) 400 Eos # (Auto) 300 Baso # (Auto) 100 Sodium 140 Potassium 3.9 Chloride 106 Carbon Dioxide 33 H BUN 10 Creatinine 0.49 L Estimated GFR > 60 BUN/Creatinine Ratio 20.4 Glucose 119 H Calcium 8.3 L Total Bilirubin 0.4 AST 22 ALT 22 Alkaline Phosphatase 74 Total Protein 6.4 Albumin 2.9 L Globulin 3.5 Albumin/Globulin Ratio 0.8 L PFSH Social History household members: significant other Smoking Status: Current every day smoker alcohol intake: current Discharge Assessment & Plan Assessment and Plan Assessment: 1. Probable right upper lobe pneumonia with pleuritic chest pain, improved. 2. Mediastinal/hilar adenopathy, stable. Likely reactive related to her acute infection. Likely will need outpatient follow-up to ensure resolution once her infection has been treated 3. Opioid use disorder, stable. She remains on methadone maintenance at 75 mg daily. This has been continued. She continues to use oral fentanyl and methamphetamines. Previous history of IV drug use but none currently 4. Hypokalemia, improved. 5. Chronic hypoxic respiratory failure, stable. Plan of Treatment: She will be discharged with the instructions to finish her oral antibiotics from last discharge which is Augmentin and see her outpatient partner integration planner next week. Discharge Plan Discharge Plan Patient Disposition: Home Provider Discharge Comment: Stable for discharge. The pneumonia and the inflammation irritating the lung are improving. You will need to finish you oral antibiotics (from previous discharge) and take ibuprofen 800 mg 1-3 times a day for 2-3 days. Discharge orders & Medications Prescriptions: New oxycodone 5 mg capsule 5 mg PO Q8H PRN (Reason: pain) Qty: 14 0RF Continued bupropion HCl 150 mg tablet extended release 24 hr 150 mg PO QAM levothyroxine 112 mcg tablet 112 mcg PO DAILY omeprazole 40 mg capsule,delayed release(DR/EC) 40 mg PO DAILY albuterol sulfate 90 mcg/actuation HFA aerosol inhaler 2 puff inhalation TID-QID PRN (Reason: SOB) fluticasone propion-salmeterol 230-21 mcg/actuation HFA aerosol inhaler 2 puff inhalation BID Spiriva Respimat 2.5 mcg/actuation mist 1 puff inhalation DAILY amoxicillin-pot clavulanate 875-125 mg tablet 1 tab PO BID 5 Days Qty: 10 0RF doxycycline hyclate 100 mg tablet 100 mg PO BID 5 Days Qty: 10 0RF nystatin 100,000 unit/gram powder 1 applic topical DAILY PRN (Reason: rash) Qty: 30 0RF lisinopril 20 mg tablet 20 mg PO DAILY methadone 75 mg 75 mg PO DAILY Medication counseling provided by Pharmacist: No Follow up/Referrals: Zoie Clemons DO [Primary Care Provider] - Discharge Health Status Multidrug resistant organism: No MDRO Diet/Activity/Treatments Diet: Diet as Tolerated Activity: Ad pravin. Skin/Wound/Dressing Care Report to your healthcare provider any signs of infection, such as:: chills, fever and increased pain Visit Report/Discharge Packet Stand Alone Forms: Patient Portal/API Discharge Data Primary Care Provider: Zoie Clemons Quality VTE Deep Vein Thrombosis/Pulmonary Embolism Present on Admission: No MIPS - DC The patient has a history of heart transplant or Left Ventricular Assist Device (LVAD). If yes, STOP here.: No The patient has current or prior documentation of left ventricular ejection fraction (LVEF) less than or equal to 40%, or moderate or severely depressed left ventricular systolic function.: No
[2024-01-23 15:38] VITALS: PULSE 81; RESP 18; O2SAT 96
== END 2024-01-23 18:15 | disposition home or self-care (01) | DRG 194 ==
LOC: ED 15:41 → AC 17:04
PROVIDERS: Admitting Provider Hospitalist; Emergency Provider Emergency Medicine; PCP Student in an Organized Health Care Education/Training Program; Referring Provider Emergency Medicine; Visit Provider Hospitalist
DX: J18.9 Pneumonia, unspecified organism (principal); F11.20 Opioid dependence, uncomplicated; J90 Pleural effusion, not elsewhere classified; J96.11 Chronic respiratory failure with hypoxia; R59.0 Localized enlarged lymph nodes; E03.9 Hypothyroidism, unspecified; F32.A Depression, unspecified; E87.6 Hypokalemia; F17.210 Nicotine dependence, cigarettes, uncomplicated
CPT/HCPCS: 36415; 71046; 71275; 76604; 80053; 83880; 84145; 84484; 85007; 85025; 85379; 87040; 87633; 93005; 93010; 94640; 94760; 96365; 99285; J0696; J1170; J1644; J1885; J7613; Q9967